=== PATIENT | male | born 1995 | race Caucasian/White ===

== ENCOUNTER 2018-09-09 17:03 | Emergency (ER) | payer SELFPAY ==
[~2018-09-09 17:03] MED LIST: Iopamidol 370 76% 125 ML VIAL FS ONE
[2018-09-09 17:53] LABS: #Basophils 0.1 thou/uL (0.0-0.2); #Eosinphils 0.1 thou/uL (0.0-0.7); #Lymphocytes 1.4 thou/uL (1.20-3.40); #Monocytes 1.2 thou/uL (0.11-0.59); #Neutrophils 13.5 thou/uL (1.40-6.50); %Basophils 0.6 % (0.0-1.0); %Eosinophils 0.9 % (0.0-10.0); %Lymphocytes 8.7 % (21.0-51.0); %Monocytes 7.2 % (0.0-10.0); %Neutrophils 82.6 % (42.0-75.0); Hemoglobin 12.2 g/dL (14.0-18.0); Mean Corpuscular HGB CONC 33.8 g/dL (32.0-36.0); Mean Corpuscular Hemoglobin 30.5 pg (27.0-31.0); Mean Corpuscular Volume 90.2 fL (78.0-98.0); Mean Platelet Volume 6.5 fL (7.4-10.4); Platelet Count 221 thou/uL (130-400); RBC Distribution Width 10.9 % (11.5-14.5); Red Blood Cell (RBC) Count 4.01 mill/uL (4.70-6.10); White Blood Cell (WBC) Count 16.3 thou/uL (4.8-10.8)
[2018-09-09] MEDS ORDERED: HYDROcodone/Acetaminophen 10/325 mg Tablet ONE (17:59)
[2018-09-09 18:20] LABS: Eosinophils 1 % (0-10); Lymphocytes 6 % (21-51); MDiff Complete? YES; Monocytes 2 % (0-10); Neutrophil 91 % (42-75)
[2018-09-09] MEDS ORDERED: Morphine 4 MG/ML VIAL ONE (19:08)
[2018-09-09] MEDS ORDERED: Ondansetron PF 4 MG/2 ML Vial ONE (19:08)
[2018-09-09 19:13] LABS: ALT (SGPT) 85 U/L (8-55); AST (SGOT) 30 U/L (5-34); Albumin 4.5 g/dL (3.5-5.0); Alkaline Phosphatase 97 U/L (40-150); Anion Gap 15 mmol/L (10-20); BUN (Urea Nitrogen) 10 mg/dL (8.9-20.6); Bilirubin, Total 0.5 mg/dL (0.2-1.2); Calc. Creatinine Clearance 0 mL/min (70-130); Calcium 10.2 mg/dL (7.8-10.44); Carbon Dioxide 26 mmol/L (22-29); Chloride 103 mmol/L (98-107); Estimated GFR-MDRD Greater than 90; Globulin 3.5 g/dL (2.4-3.5); Glucose 94 mg/dL (70-105); Potassium 3.4 mmol/L (3.5-5.1); Sodium 141 mmol/L (136-145)
--- NOTE | 2018-09-09 19:20 | CT ---
CT OF THE RIGHT ELBOW WITH CONTRAST 09/09/[address] of the elbow was obtained through an area of swelling and redness. Reconstructions were don e in multiple planes. There is reticulation of the soft tissues around the area of the olecranon posteriorly and extending both above and below this point. Fluid collection is seen immediately posterior to the olecranon gloria uring about 2.5 x 1.3 cm. This is presumably a distended olecranon bursa. Thus the differential lies between olecranon bursitis versus an abscess with soft tissue infection. The bones themselves are unr emarkable. There is no sign of bony erosion or destruction. No fracture was seen. I do not see any ev idence of fluid in the joint of the elbow such as displaced fat pads. IMPRESSION: Soft tissue inflammatory change around the olecranon and above and below it. Fluid collection posteri yamel is presumed to be either olecranon bursitis or an abscess. POS: HOME
== END 2018-09-09 19:18 | disposition short-term general hospital (02) ==
LOC: BURERS 17:03
DX: M71.521 Other bursitis, not elsewhere classified, right elbow (principal)
CPT/HCPCS: 20605; 80053; 83605; 85025; 87070; 87077; 87205; 96365; 96375; J2270; J2405; J3370; Q9967